=== PATIENT | female | born 1990 ===

== ENCOUNTER 2023-02-13 15:03 | Emergency (ER) | payer OTHER, SELFPAY ==
--- NOTE | ~2023-02-13 | XR_ITS ---
EXAMINATION: XR chest 2V DATE: 02/13/2023 17:07 INDICATION: Chest pain. TECHNIQUE: Frontal and lateral views of the chest were obtained. COMPARISON: None. FINDINGS: There is no pneumonia, pleural effusion, or pneumothorax. The heart size is normal. IMPRESSION: 1. No acute cardiopulmonary disease. Reviewed, dictated and finalized at location A. MANAGER
--- NOTE | 2023-02-13 15:05 | ECG_ITS ---
Measurements Intervals [place] Rate: 72 P: 43 VT: 149 QRS: 58 QRSD: 106 T: 36 QT: 360 QTc: 396 Interpretive Statements SINUS RHYTHM LOW-VOLTAGE QRS IN PRECORDIAL LEADS NONSPECIFIC ST ABNORMALITY BORDERLINE ECG NO PREVIOUS ECG AVAILABLE FOR COMPARISON Electronically Signed On 02-14-2023 13:49:13 HAT MARKER by Arsalan Wynn M.D.
[2023-02-13 15:06] VITALS: BP 118/67; PULSE 86; RESP 16; TEMP 36.7; O2SAT 100
[2023-02-13 15:44] LABS: Basophils Percent Auto 0.3 % (0.2-1.2); Eosinophils Absolute Auto 0.1 K/mm3 (0-0.3); Eosinophils Percent Auto 0.8 % (0-4.4); Hematocrit 37.8 % (37.0-47.0); Hemoglobin 12.1 g/dL (12.0-15.0); Immature Granulocyte Absolute 0.01 K/mm3 (0.00-0.031); Immature Granulocyte Percent A 0.2 % (0-0.5); Lymphocytes Absolute Auto 2.29 K/mm3 (0.9-3.2); Lymphocytes Percent Auto 38.9 % (18.3-44.2); Mean Corpuscular Hemoglobin 29.9 pg (26-34); Mean Corpuscular Volume 93.3 fl (80-100); Monocytes Absolute Auto 0.3 K/mm3 (0.1-0.6); Monocytes Percent Auto 5.6 % (2.6-8.5); Neutrophils Absolute Auto 3.2 K/mm3 (1.3-6.7); Neutrophils Percent Auto 54.2 % (45.5-73.1); Platelet Count Result 266 k/mm3 (150-375); Red Blood Count 4.05 M/mm3 (4.2-5.4); Red Cell Distribution Width 12.6 % (11.5-14.5); White Blood Count 5.9 K/mm3 (4.5-10.0)
[2023-02-13 15:56] LABS: Alanine Aminotransferase 22 U/L (6-35); Albumin Level 4.2 g/dL (3.5-5.1); Alkaline Phosphatase 55 U/L (38-126); Anion Gap 10 mmol/L (8-16); Aspartate Amino Transferase 24 U/L (14-36); Bilirubin,Total 0.7 mg/dL (0.2-1.3); Blood Urea Nitrogen 12 mg/dL (7-17); Calcium 9.2 mg/dL (8.4-10.2); Carbon Dioxide 24 mmol/L (22-30); Chloride 106 mmol/L (98-107); Estimated CRCL calculation 98 ml/min; Estimated Glomerular Filt Rate > 60; Glucose 139 mg/dL (65-110); Lipase 47 U/L (23-300); Potassium 3.4 mmol/L (3.4-5.0); Sodium 140 mmol/L (137-145)
[2023-02-13 16:09] LABS: Troponin I < 0.012 ng/mL (0.000-0.034)
[2023-02-13 16:17] LABS: Prothrombin Time 13.9 Seconds (11.1-14.7)
[2023-02-13 16:18] LABS: Partial Thromboplastin Time 29.5 SECONDS (22.3-36.8)
--- NOTE | 2023-02-13 17:26 | PC.NURSE ---
Pt A&Ox4. Pt left before seeing provider.
== END 2023-02-13 19:18 | disposition left against medical advice (07) ==
LOC: ANHED 17:58
PROVIDERS: Emergency Provider Emergency Medicine
DX: R51.9 Headache, unspecified (principal)
CPT/HCPCS: 36415; 71046; 80053; 83690; 84484; 85025; 85610; 85730; 93005; 99199